=== PATIENT | male | born 1990 | race African-American/Black ===

== ENCOUNTER 2018-08-24 17:35 | Emergency (ER) | payer BC ==
--- NOTE | 2018-08-24 18:35 | RAD REPORT ---
EXAM DESCRIPTION: CT - Head Brain Wo Cont - 08/24/2018 6:28 pm CLINICAL HISTORY: Dizziness;Headache COMPARISON: No comparisons TECHNIQUE: All CT scans are performed using dose optimization technique as appropriate and may inclu de automated exposure control or mA/KV adjustment according to patient size. FINDINGS: No intracranial hemorrhage, hydrocephalus or extra-axial fluid collection.No areas of brai n edema or evidence of midline shift. The paranasal sinuses and mastoids are clear. The calvarium is intact. IMPRESSION: No acute intracranial abnormality.
--- NOTE | 2018-08-24 19:31 | EDPHYS ---
Physician Documentation [facility] Name: Attila Espinosa Age: 28 yrs Sex: Male : 1990 Arrival Date: 08/24/2018 Time: 17:39 Bed 18 Private MD: ED Physician Moreno Gonzales HPI: 08/24 18:35 This 28 yrs old Black Male presents to ER via Ambulatory with complaints of Headache. jr8 18:35 The patient complains of pain to the forehead. The patient describes the headache as jr8 intermittent, throbbing. Onset: The symptoms/episode began/occurred intermittent for past couple of weeks . Associated signs and symptoms: Pertinent positives: dizziness, nausea, general fatigue. The patient has not experienced similar symptoms in the past. The patient has not recently seen a physician. Currently without pain. Stated that it had been intermittent. Historical: - Allergies: 17:46 No Known Allergies; hj - Home Meds: 17:46 None [Active]; hj - PMHx: 17:46 None; hj - PSHx: 17:46 abdominal surgery; hj - Immunization history:: Adult Immunizations up to date. - Social history:: Smoking status: Patient/guardian denies using tobacco, Patient/guardian denies using alcohol. - Ebola Screening: : Patient negative for fever greater than or equal to 101.5 degrees Fahrenheit, and additional compatible Ebola Virus Disease symptoms Patient denies exposure to infectious person Patient denies travel to an Ebola-affected area in the 21 days before illness onset. ROS: 18:37 Eyes: Negative for injury, pain, redness, and discharge, ENT: Negative for injury, jr8 pain, and discharge, Neck: Negative for injury, pain, and swelling, Cardiovascular: Negative for chest pain, palpitations, and edema, Respiratory: Negative for shortness of breath, cough, wheezing, and pleuritic chest pain, Back: Negative for injury and pain, MS/Extremity: Negative for injury and deformity, Skin: Negative for injury, rash, and discoloration. 18:37 Constitutional: Positive for fatigue, malaise. 18:37 Abdomen/GI: Positive for nausea, Negative for abdominal pain, vomiting, diarrhea, constipation, abdominal cramps, abdominal distension. 18:37 Neuro: Positive for dizziness, headache. Exam: 18:37 Eyes: Pupils equal round and reactive to light, extra-ocular motions intact. Lids and jr8 lashes normal. Conjunctiva and sclera are non-icteric and not injected. Cornea within normal limits. Periorbital areas with no swelling, redness, or edema. ENT: Nares patent. No nasal discharge, no septal abnormalities noted. Tympanic membranes are normal and external auditory canals are clear. Oropharynx with no redness, swelling, or masses, exudates, or evidence of obstruction, uvula midline. Mucous membranes moist. Neck: Trachea midline, no thyromegaly or masses palpated, and no cervical lymphadenopathy. Supple, full range of motion without nuchal rigidity, or vertebral point tenderness. No Meningismus. Cardiovascular: Regular rate and rhythm with a normal S1 and S2. No gallops, murmurs, or rubs. Normal PMI, no JVD. No pulse deficits. Respiratory: Lungs have equal breath sounds bilaterally, clear to auscultation and percussion. No rales, rhonchi or wheezes noted. No increased work of breathing, no retractions or nasal flaring. Abdomen/GI: Soft, non-tender, with normal bowel sounds. No distension or tympany. No guarding or rebound. No evidence of tenderness throughout. Back: No spinal tenderness. No costovertebral tenderness. Full range of motion. Skin: Warm, dry with normal turgor. Normal color with no rashes, no lesions, and no evidence of cellulitis. MS/ Extremity: Pulses equal, no cyanosis. Neurovascular intact. Full, normal range of motion. Neuro: Awake and alert, GCS 15, oriented to person, place, time, and situation. Cranial nerves II-XII grossly intact. Motor strength 5/5 in all extremities. Sensory grossly intact. Cerebellar exam normal. Normal gait. Vital Signs: 17:47 BP 144 / 86; Pulse 71; Resp 18; Temp 98.9(O); Pulse Ox 100% on R/A; Weight 97.52 kg; hj Height 6 ft. 0 in. (182.88 cm); Pain 07/05; 18:42 BP 150 / 107 LA Supine (auto/lg); Pulse 64; ed1 18:42 BP 143 / 140 LA Sitting (auto/lg); Pulse 60; ed1 18:42 BP 147 / 108 LA Standing (auto/lg); Pulse 54; ed1 19:44 BP 148 / 101; Pulse 71; Resp 16; Pulse Ox 100% on R/A; Pain 1/10; ed1 17:47 Body Mass Index 29.16 (97.52 kg, 182.88 cm) hj MDM: 17:52 Patient medically screened. jr8 19:29 Data reviewed: vital signs, nurses notes, lab test result(s), EKG, radiologic studies, jr8 CT scan. Data interpreted: Pulse oximetry: on room air is 100 %. Interpretation: normal. Counseling: I had a detailed discussion with the patient and/or guardian regarding: the historical points, exam findings, and any diagnostic results supporting the discharge/admit diagnosis, lab results, radiology results, the need for outpatient follow up, a family practitioner, to return to the emergency department if symptoms worsen or persist or if there are any questions or concerns that arise at home. 19:31 Counseling: I had a detailed discussion with the patient and/or guardian regarding: the jr8 presence of at least one elevated blood pressure reading (>120/80) during this emergency department visit. Special discussion: I have referred the patient to see his PCP for further evaluation of high blood pressure. 08/24 18:05 Order name: CT Head Brain wo Cont; Complete Time: 18:38 jr8 08/24 18:05 Order name: EKG; Complete Time: 18:05 jr8 08/24 18:05 Order name: EKG - Nurse/Tech; Complete Time: 18:16 jr8 08/24 18:05 Order name: Glucose Level; Complete Time: 18:37 jr8 08/24 18:05 Order name: Orthostatics; Complete Time: 18:43 jr8 Administered Medications: No medications were administered Point of Care Testing: Blood Glucose: 18:37 Blood Glucose: 96 mg/dL; ed1 Ranges: Critical Glucose Levels:Adult <50 mg/dl or >400 mg/dl <40 mg/dl or >180 mg/dl Disposition: 08/24/18 19:31 Discharged to Home. Impression: Headache. - Condition is Stable. - Discharge Instructions: Migraine Headache. - Medication Reconciliation Form, Thank You Letter, Antibiotic Education, Prescription Opioid Use form. - Follow up: Private Physician; When: 2 - 3 days; Reason: Recheck today's complaints, Continuance of care, Re-evaluation by your physician. - Problem is new. - Symptoms have improved. Signatures: Dispatcher [employer] EDMS Deborah Stone RN RN ed1 Brian Quinn PA PA jr8 Fredrick Dasilva RN RN hj Corrections: (The following items were deleted from the chart) 19:32 19:29 Data reviewed: vital signs, nurses notes, lab test result(s), EKG, radiologic jr8 studies, CT scan, jr8 19:45 19:31 08/24/2018 19:31 Discharged to Home. Impression: Headache. Condition is Stable. ed1 Forms are Medication Reconciliation Form, Thank You Letter, Antibiotic Education, Prescription Opioid Use. Follow up: Private Physician; When: 2 - 3 days; Reason: Recheck today's complaints, Continuance of care, Re-evaluation by your physician. Problem is new. Symptoms have improved. jr8
--- NOTE | 2018-08-24 19:31 | ER ---
Nurse's Notes [facility] Name: Attila Espinosa Age: 28 yrs Sex: Male : 1990 Arrival Date: 08/24/2018 Time: 17:39 Bed 18 Private MD: Diagnosis: Headache Presentation: 08/24 17:44 Presenting complaint: Patient states: vianca been having headaches for 4 weeks now, they hj come and go, reports nausea and blurry vision;. Transition of care: patient was not received from another setting of care. Onset of symptoms was August 24, 2018. Risk Assessment: Do you want to hurt yourself or someone else? Patient reports no desire to harm self or others. Initial Sepsis Screen: Does the patient meet any 2 criteria? No. Patient's initial sepsis screen is negative. Does the patient have a suspected source of infection? No. Patient's initial sepsis screen is negative. Care prior to arrival: None. 17:44 Method Of Arrival: Ambulatory 17:44 Acuity: KADIE 3 hj Triage Assessment: 17:46 Headache History: Denies prior headaches. General: Appears in no apparent distress. hj uncomfortable, Behavior is calm, cooperative, appropriate for age. Pain: Complains of pain in head Pain currently is 1 out of 10 on a pain scale. Pain began 4 weeks Also complains of nausea. Neuro: Level of Consciousness is awake, alert, obeys commands, Oriented to person, place, time, situation, Appropriate for age. Historical: - Allergies: 17:46 No Known Allergies; hj - Home Meds: 17:46 None [Active]; hj - PMHx: 17:46 None; hj - PSHx: 17:46 abdominal surgery; hj - Immunization history:: Adult Immunizations up to date. - Social history:: Smoking status: Patient/guardian denies using tobacco, Patient/guardian denies using alcohol. - Ebola Screening: : Patient negative for fever greater than or equal to 101.5 degrees Fahrenheit, and additional compatible Ebola Virus Disease symptoms Patient denies exposure to infectious person Patient denies travel to an Ebola-affected area in the 21 days before illness onset. Screenin:46 Abuse screen: Denies threats or abuse. Denies injuries from another. Nutritional hj screening: No deficits noted. Tuberculosis screening: No symptoms or risk factors identified. Fall Risk None identified. Assessment: 17:52 General: Appears in no apparent distress. Behavior is calm, cooperative. Pain: ed1 Complains of pain in top of head and forehead Pain does not radiate. Pain currently is 1 out of 10 on a pain scale. at worst was 6 out of 10 on a pain scale. Quality of pain is described as aching, throbbing, Pain began off and on for 4 weeks. Neuro: Level of Consciousness is awake, alert, obeys commands, Oriented to person, place, time, situation, Reports blurred vision dizziness, headache off and on for 4 weeks. Cardiovascular: Denies chest pain, Heart tones S1 S2 present. Respiratory: Airway is patent Respiratory effort is even, unlabored, Respiratory pattern is regular, symmetrical, Breath sounds are clear bilaterally. GI: Abdomen is flat, non-distended, Bowel sounds present X 4 quads. Abd is soft and non tender X 4 quads. Reports nausea, Patient currently denies diarrhea, vomiting. : No signs and/or symptoms were reported regarding the genitourinary system. EENT: No signs and/or symptoms were reported regarding the EENT system. Derm: Skin is intact, is healthy with good turgor, Skin is dry, Skin is normal, Skin temperature is warm. Musculoskeletal: Circulation, motion, and sensation intact. Range of motion: intact in all extremities. 19:44 Reassessment: Patient appears in no apparent distress at this time. No changes from ed1 previously documented assessment. Patient and/or family updated on plan of care and expected duration. Pain level reassessed. Patient is alert, oriented x 3, equal unlabored respirations, skin warm/dry/pink. Vital Signs: 17:47 BP 144 / 86; Pulse 71; Resp 18; Temp 98.9(O); Pulse Ox 100% on R/A; Weight 97.52 kg; hj Height 6 ft. 0 in. (182.88 cm); Pain 1/10; 18:42 BP 150 / 107 LA Supine (auto/lg); Pulse 64; ed1 18:42 BP 143 / 140 LA Sitting (auto/lg); Pulse 60; ed1 18:42 BP 147 / 108 LA Standing (auto/lg); Pulse 54; ed1 19:44 BP 148 / 101; Pulse 71; Resp 16; Pulse Ox 100% on R/A; Pain 1/10; ed1 17:47 Body Mass Index 29.16 (97.52 kg, 182.88 cm) ED Course: 17:39 Patient arrived in ED. mr 17:45 Triage completed. hj 17:46 Arm band placed on right wrist. hj 17:47 Patient has correct armband on for positive identification. Bed in low position. Call hj light in reach. Side rails up X 1. 17:51 Deborah Stone, RN is Primary Nurse. ed1 17:52 Brian Quinn PA is PHCP. jr8 17:52 Moreno Gonzales MD is Attending Physician. jr8 18:28 CT Head Brain wo Cont In Process Unspecified. EDMS 19:44 No provider procedures requiring assistance completed. Patient did not have IV access ed1 during this emergency room visit. Administered Medications: No medications were administered Point of Care Testing: Blood Glucose: 18:37 Blood Glucose: 96 mg/dL; ed1 Ranges: Outcome: 19:31 Discharge ordered by MD. jr8 19:44 Discharged to home ambulatory, with family. ed1 19:44 Condition: good 19:44 Discharge instructions given to patient, Instructed on discharge instructions, follow up and referral plans. Demonstrated understanding of instructions, follow-up care. 19:45 Patient left the ED. ed1 Signatures: Dispatcher [employer] [facility] CrainNena mcgrath mr Deborah Stone, RN RN ed1 Brian Quinn PA PA jrFredrick Fox RN RN Corrections: (The following items were deleted from the chart) 17:49 17:47 Pulse 71bpm; Resp 18bpm; Pulse Ox 100% RA; Temp 98.9F Oral; 97.52 kg; Height 6 hj ft. 0 in.; BMI: 29.1; Pain 1/10; hj
--- NOTE | 2018-08-26 10:14 | EKG ---
Test Date: 2018-08-24 Test Time: 18:14:08 Home Inspector: MEASUREMENT RESULTS: Intervals: Rate: 63 WV: 176 QRSD: 94 QT: 382 QTc: 390 [place]: P: 53 WV: 176 QRS: 62 T: 34 INTERPRETIVE STATEMENTS: Normal sinus rhythm Normal ECG No previous ECG available for comparison Electronically Signed On 08-26-18 10:12:51 [employer] TOPPER by Melvin Ray
== END 2018-08-24 19:45 | disposition home or self-care (01) ==
LOC: ER 17:35
DX: R51 Headache (principal); R42 Dizziness and giddiness
CPT/HCPCS: 70450; 82962; 93005; 99283